=== PATIENT | male | born 1935 | race Caucasian/White ===

== ENCOUNTER → 2017-12-12 | Outpatient (CLI) | payer OTHER, MEDICARE ==
[~2017-12-12] MED LIST: GADOBUTROL 10 ML VIAL IVP ONE
== END ==
LOC: FIMAGING 07:38
PROVIDERS: ATTEND Specialist
DX: R97.20 Elevated prostate specific antigen [PSA] (principal); N40.3 Nodular prostate with lower urinary tract symptoms; R35.0 Frequency of micturition; K62.4 Stenosis of anus and rectum; Z80.42 Family history of malignant neoplasm of prostate
CPT/HCPCS: 72197; 76377; A9585

== ENCOUNTER → 2018-06-25 | Outpatient (CLI) | payer OTHER, MEDICARE | LOC: FIMAGING 07:26 | PROVIDERS: ATTEND Specialist | DX: K76.89 Other specified diseases of liver (principal); K62.4 Stenosis of anus and rectum | CPT/HCPCS: 72197; 76377; A9585; 82565-PO ==

== ENCOUNTER 2018-08-02 08:32 | Inpatient (IN) | payer OTHER, MEDICARE ==
[2018-08-02] MEDS ORDERED: NS 1,000 ML IV ONE ×2 (08:51→10:28)
[2018-08-02] MEDS ORDERED: ONDANSETRON 4 MG/2 ML VIAL IVP ONE (08:58)
[2018-08-02] MEDS ORDERED: HYDROmorphONE/DILAUDID 2 MG/ML INJ IVP ONE (08:58)
--- NOTE | 2018-08-02 09:01 | EDPHY ---
H & P Stated Complaint: l flank pain hematuria Time Seen by Provider: 08/02/18 08:51 HPI/ROS: HPI: This is an 83-year-old male who presents with Chief Complaint: Left flank pain and hematuria Location: Left flank Quality: Pain and hematuria Duration: Around 430 this morning, 5 hr prior to arrival Signs and Symptoms: no fever, + nausea, no vomiting, no hematemesis, no blood in stool, no abdominal bloating, no diarrhea, no back pain, + urinary symptoms, no testicular/groin pain, no indigestion, no chest pain, no shortness of breath Timing: Acute Severity: 03/19 Context: Patient has a history of kidney stones approximately 5 years ago requiring cystoscopy and stent placement by Dr. Arzate at [facility] presents today with waking up this morning around 4:30 a.m. With left flank pain that was in the upper portion radiating down into the left lower groin. Patient reports that he woke up and went to the bathroom and started to feel the pain. The pain was intermittent and cramping in nature. Approximately 1-2 hours later he urinated and had hesitancy, frequency and noted blood in his urine. He felt a sharp burning pain as he urinated which he thought maybe he was passing a stone. Complains of nausea but no vomiting, no fever, no back pain. Modifying Factors: None Comment: ROS: A comprehensive 10 system review of systems is otherwise negative aside from elements mentioned in the history of present illness. MEDICAL/SURGICAL/SOCIAL HISTORY: Medical history: Kidney stones, atrial fibrillation, hyper lipidemia, gastroesophageal reflux disease. Surgical history: Denies Social history: with children. Retired. Never smoked. Family history noncontributory. CONSTITUTIONAL: Well-developed, well-nourished, talkative, elderly white male who appears nontoxic, awake and alert, no obvious distress HEENT: Atraumatic and normocephalic, PERRL, EOMI. Nares patent; no rhinorrhea; no nasal mucosal edema. Tympanic membranes clear. Oropharynx clear, no exudate and moist pink mucosa. Airway patent. No lymphadenopathy. No meningismus. Cardiovascular: Normal S1/S2, regular rate, regular rhythm, without murmur rub or gallop. PULMONARY/CHEST: Symmetrical and nontender. Clear to auscultation bilaterally. Good air movement. No accessory muscle usage. ABDOMEN: Soft, nondistended, nontender, no rebound, no guarding, no peritoneal signs, no masses or organomegaly. Left flank, left lower quadrant moderate reproducible tenderness. EXTREMITIES: 2/2 pulses, strength 5/5, no deformities, no clubbing, no cyanosis or edema. NEUROLOGICAL: no focal neuro deficits. GCS 15. SKIN: Warm and dry, no erythema. no rash. Good capillary refill. Source: Patient, Family, Old records Exam Limitations: No limitations - Personal History Current Tetanus Diphtheria and Acellular Pertussis (TDAP): Unsure - Medical/Surgical History Hx Asthma: No Hx Chronic Respiratory Disease: No Hx Diabetes: No Hx Cardiac Disease: Yes Hx Renal Disease: Yes Hx Cirrhosis: No Hx Alcoholism: No Hx HIV/AIDS: No Hx Splenectomy or Spleen Trauma: No Other PMH: kidney stones afib - Social History Smoking Status: Never smoked Constitutional: Initial Vital Signs Temperature (C) 36.4 C 08/02/18 08:37 Heart Rate 76 08/02/18 08:37 Respiratory Rate 18 08/02/18 08:37 Blood Pressure 152/116 H 08/02/18 08:37 O2 Sat (%) 98 08/02/18 08:37 O2 Delivery Mode Room Air Allergies/Adverse Reactions: propranolol HCl [From Inderal LA] Allergy (Severe, Verified 08/02/18 08:34) FAINTED aspirin Allergy (Intermediate, Verified 08/02/18 08:34) HX RECTAL BLDG WITH FULL STRENGTH ASA Penicillins Allergy (Intermediate, Verified 08/02/18 08:34) Hives Sulfa (Sulfonamide Antibiotics) Allergy (Intermediate, Verified 08/02/18 08:34) Rash fluticasone propionate [From Flonase] Allergy (Verified 08/02/18 08:34) lansoprazole [From Prevacid] Allergy (Verified 08/02/18 08:34) ENVIRONMENTAL Allergy (Mild, Uncoded 02/01/14 14:35) NASAL DRAINAGE, SNEEZE FRAGRANCES Allergy (Mild, Uncoded 02/01/14 14:35) RG, NASAL DRAINAGE Home Medications: Medication Instructions Recorded Acetaminophen [Tylenol ES 500 mg 500 mg PO Q6 PRN 08/02/18 (*)] Apixaban [Eliquis] 5 mg PO BID 08/02/18 Atorvastatin Calcium [Lipitor 20 20 mg PO DAILY 08/02/18 mg (*)] Cholecalciferol Vit D3 [Vitamin D3 1,000 units PO DAILY 08/02/18 (*)] Furosemide [Lasix 20 MG (*)] 20 mg PO DAILY 08/02/18 Methylcellulose [Citrucel] 500 mg PO DAILY 08/02/18 Pantoprazole Sodium 20 mg PO BID 08/02/18 Medical Decision Making - Diagnostics EKG Interpretation: 12 lead EKG: Indication: Abdominal pain Rhythm: Atrial fibrillation [place]: Normal Intervals: Normal QRS: Normal ST segments: Nonspecific changes INTERPRETATION: No acute ischemic changes The 12 lead EKG was interpreted by myself and with attending. Imaging Results: Imaging Impressions Abdomen/Pelvis CT 08/02/18 08:59 Impression: 1. Mild to moderate left-sided hydronephrosis secondary to proximal to mid left ureteral calculus measuring 5.5 x 5 mm transversely by 10 mm longitudinally. 2. Additional 1 mm nonobstructive calculus mid left kidney. Attention: This CT examination is specifically designed to evaluate patients who are clinically suspected of having acute obstructive uropathy. This examination does not use radiographic contrast, and as such, provides only a limited evaluation of the abdomen, pelvis and retroperitoneum. If there is further clinical suspicion for pathological conditions other than obstructive uropathy, a complete CT evaluation of the abdomen and pelvis utilizing intravenous, oral, and rectal contrast should be considered. Findings discussed with Pratibha Solano PAC at 10:25 hour, 08/02/2018. ED Course/Re-evaluation: Vital signs reviewed and show rate controlled atrial fibrillation on the monitor. Afebrile with no tachycardia. IV access, laboratory studies, urinalysis, CT abdomen and pelvis scan without contrast ordered Given 1 L normal saline, IV Dilaudid 0.5 mg, IV Zofran 4 mg Patient is not a good candidate for NSAIDs with Eliquis use. 0910: Notified by RN that patient is now complaining of left-sided chest pressure. EKG and POC troponin ordered Patient has a history of atrial fibrillation, on Eliquis 0925: Notified by daughter at bedside that patient is complaining of pain . IV fentanyl 50 mcg ordered 0930: EKG my read with attending shows atrial fibrillation with a rate of 79 beats per minute with no acute ischemic changes. 0934: Notified by tech that troponin 0.00 0935: Labs Reviewed. No signs of leukocytosis/anemia/platelet dysfunction/ electrolyte imbalance/ACS. Creatinine 1.3, potassium 3.3 1000: Notified by RN that patient is complaining of pain. IV fentanyl 100 mcg and IV Toradol 15 mg given 1013: Urinalysis shows 3+ blood, 50-200 RBC, negative LE, no signs of infection No signs of sepsis. 1025: Called by radiologist, Dr. Leonadr Rosales, who reports CT abdomen and pelvis scan shows [id number] hydronephrosis, either 1 long 1 or 2 stones noted in the proximal to mid left ureter measuring 5.5 mm x 10 mm longitudinally almost like a bullet shape. ED decision to consult Urology and hospitalist. Spoke with Dr. Raudel Stanton, urology, who advised me to contact [facility]. Spoke with hospitalist, Dr. Oviedo, who advises patient will be under the care of Dr. Guillaume. 1045: Paged [facility]. This patient was seen under the supervision of my secondary supervising physician. I evaluated care for this patient with attending. Discussed this patient with Dr. Wagoner. Differential Diagnosis: Flank pain including but not limited to musculoskeletal causes, kidney stone, pyelonephritis, shingles, and intra-abdominal causes such as diverticulitis and appendicitis. - Data Points Laboratory Results: Laboratory Results 08/02/18 09:00 08/02/18 09:00 08/02/18 08/02/18 08/02/18 09:37 09:13 09:00 WBC RBC Hgb Hct MCV MCH MCHC RDW Plt Count MPV Neut % (Auto) Lymph % (Auto) [place] % (Auto) Eos % (Auto) Baso % (Auto) Nucleat RBC Rel Count Absolute Neuts (auto) Absolute Lymphs (auto) Absolute Monos (auto) Absolute Eos (auto) Absolute Basos (auto) Absolute Nucleated RBC Immature Gran % Immature Gran # Sodium 140 mEq/L mEq/L (135-145) Potassium 3.3 mEq/L L mEq/L (3.5-5.2) Chloride 104 mEq/L mEq/L (97-110) Carbon Dioxide 26 mEq/l mEq/l (22-31) Anion Gap 10 mEq/L mEq/L (6-14) BUN 22 mg/dL mg/dL (7-23) Creatinine 1.3 mg/dL mg/dL (0.7-1.3) Estimated GFR 53 Glucose 113 mg/dL H mg/dL (70-100) Calcium 9.2 mg/dL mg/dL (8.5-10.4) POC Troponin I 0.00 ng/mL ng/mL (0.00-0.08) Urine Color YELLOW Urine Appearance HAZY Urine pH 9.0 H (5.0-7.5) Ur Specific [place] 1.010 (1.002-1.030) Urine Protein NEGATIVE (NEGATIVE) Urine Ketones NEGATIVE (NEGATIVE) Urine Blood 3+ H (NEGATIVE) Urine Nitrate NEGATIVE (NEGATIVE) Urine Bilirubin NEGATIVE (NEGATIVE) Urine Urobilinogen NEGATIVE EU EU (0.2-1.0) Ur Leukocyte Esterase NEGATIVE (NEGATIVE) Urine RBC 50-182 /hpf H /hpf (0-3) Urine WBC 0-1 /hpf /hpf (0-3) Ur Epithelial Cells NONE SEEN /lpf /lpf (NONE-1+) Urine Mucus TRACE /lpf /lpf (NONE-1+) Urine Glucose NEGATIVE (NEGATIVE) 08/02/18 09:00 WBC 8.61 10^3/uL 10^3/uL (3.80-9.50) RBC 4.48 10^6/uL 10^6/uL (4.40-6.38) Hgb 14.4 g/dL g/dL (13.7-17.5) Hct 42.7 % % (40.0-51.0) MCV 95.3 fL fL (81.5-99.8) MCH 32.1 pg pg (27.9-34.1) MCHC 33.7 g/dL g/dL (32.4-36.7) RDW 13.2 % % (11.5-15.2) Plt Count 163 10^3/uL 10^3/uL (150-400) MPV 9.8 fL fL (8.7-11.7) Neut % (Auto) 67.6 % % (39.3-74.2) Lymph % (Auto) 20.0 % % (15.0-45.0) [place] % (Auto) 10.3 % % (4.5-13.0) Eos % (Auto) 1.4 % % (0.6-7.6) Baso % (Auto) 0.2 % L % (0.3-1.7) Nucleat RBC Rel Count 0.0 % % (0.0-0.2) Absolute Neuts (auto) 5.82 10^3/uL 10^3/uL (1.70-6.50) Absolute Lymphs (auto) 1.72 10^3/uL 10^3/uL (1.00-3.00) Absolute Monos (auto) 0.89 10^3/uL H 10^3/uL (0.30-0.80) Absolute Eos (auto) 0.12 10^3/uL 10^3/uL (0.03-0.40) Absolute Basos (auto) 0.02 10^3/uL 10^3/uL (0.02-0.10) Absolute Nucleated RBC 0.00 10^3/uL 10^3/uL (0-0.01) Immature Gran % 0.5 % % (0.0-1.1) Immature Gran # 0.04 10^3/uL 10^3/uL (0.00-0.10) Sodium Potassium Chloride Carbon Dioxide Anion Gap BUN Creatinine Estimated GFR Glucose Calcium POC Troponin I Urine Color Urine Appearance Urine pH Ur Specific [place] Urine Protein Urine Ketones Urine Blood Urine Nitrate Urine Bilirubin Urine Urobilinogen Ur Leukocyte Esterase Urine RBC Urine WBC Ur Epithelial Cells Urine Mucus Urine Glucose Medications Given: Discontinued Medications Fentanyl (Sublimaze) 50 mcg IVP EDNOW ONE Stop: 08/02/18 09:26 Last Admin: 08/02/18 09:28 Dose: 50 mcg Fentanyl (Sublimaze) 100 mcg IVP EDNOW ONE Stop: 08/02/18 10:02 Last Admin: 08/02/18 10:04 Dose: 100 mcg Hydromorphone HCl (Dilaudid) 0.5 mg IVP EDNOW ONE Stop: 08/02/18 08:59 Last Admin: 08/02/18 09:05 Dose: 0.5 mg Sodium Chloride (Ns) 1,000 mls @ 0 mls/hr IV ONCE ONE; Wide Open PRN Reason: Protocol Stop: 08/02/18 08:52 Last Admin: 08/02/18 09:05 Dose: 1,000 mls Sodium Chloride (Ns) 1,000 mls @ 0 mls/hr IV EDNOW ONE; Wide Open PRN Reason: Protocol Stop: 08/02/18 10:29 Last Admin: 08/02/18 10:40 Dose: 1,000 mls Ketorolac Tromethamine (Toradol) 15 mg IVP EDNOW ONE Stop: 08/02/18 10:02 Last Admin: 08/02/18 10:03 Dose: 15 mg Ondansetron HCl (Zofran) 4 mg IVP EDNOW ONE Stop: 08/02/18 08:59 Last Admin: 08/02/18 09:05 Dose: 4 mg Point of Care Test Results: Chemistry 08/02/18 09:13 POC Troponin I 0.00 ng/mL ng/mL (0.00-0.08) Departure - Departure Disposition: [facility] Inpatient Acute Clinical Impression: Ureterolithiasis, Renal colic on left side, Hydronephrosis due to obstruction of ureter, Uncontrolled pain Condition: Fair
[2018-08-02 09:21] LABS: PLATELET COUNT 163 10^3/uL (150-400)
[2018-08-02] MEDS ORDERED: fentaNYL 100 MCG/2 ML INJ IVP ONE ×2 (09:25→10:01)
[2018-08-02] MEDS ORDERED: fentaNYL 100 MCG/2 ML INJ ONE (09:59)
[2018-08-02] MEDS ORDERED: KETOROLAC 15 MG/1 ML SDV ONE (10:01)
[2018-08-02] MEDS ORDERED: KETOROLAC 15 MG/1 ML SDV IVP ONE (10:01)
[2018-08-02] MEDS ORDERED: HYDROCODONE/APAP 5/325 TAB PO PRN (11:11)
[2018-08-02] MEDS ORDERED: ACETAMINOPHEN 325 MG TAB PO PRN (11:11)
[2018-08-02] MEDS ORDERED: ONDANSETRON DISINTEGRATING 4 MG TAB PO PRN (11:11)
[2018-08-02] MEDS ORDERED: ONDANSETRON 4 MG/2 ML VIAL IVP PRN (11:11)
--- NOTE | 2018-08-02 11:27 | CPEKG ---
Test Reason : OPEN Blood Pressure : / mmHG Vent. Rate : 079 BPM Atrial Rate : 142 BPM P-R Int : 057 ms QRS Dur : 091 ms QT Int : 403 ms P-R-T Axes : 000 082 069 degrees QTc Int : 463 ms Atrial fibrillation Borderline right axis deviation Confirmed by Ming Wagoner ([id number]) on 08/02/2018 11:27:13 AM Referred By: Shailesh Guillaume Confirmed By:Ming Wagoner
[2018-08-02] MEDS: HYDROmorphONE/DILAUDID 1 MG/ML INJ IVP PRN ×2 (12:59→23:36)
[2018-08-02] MEDS: NS 1,000 ML IV SCH ×2 (13:00→21:58)
--- NOTE | 2018-08-02 17:16 | PDGENHP ---
History and Physical - Chief Complaint L flank pain, hematuria - History of Present Illness Phoenix Adams is a 83 yo M with a PMHx of Nephrolithiasis, A fib on Eliquis, GERD who presents to [facility] for L flank pain and hematuria. Patient reports that for the past 3 weeks of so he has been having intermittent L sided flank pain. Pain is described as sharp, non-radiating. He was seen by his urologist, Dr. Arzate, who performed CT which per patient did not show kidney stone. He was supposed to f/u with urology for cystoscopy in the future. He also reports intermittent hematuria with pink-tinged urine and some bright red blood. He will then have clear urine in between. This morning around 4:30 AM, he awoke with severe L sided flank pain with associated gross hematuria. This prompted him to call his daughter who brought him to the emergency room. History Information - Allergies/Home Medication List Allergies/Adverse Reactions: propranolol HCl [From Inderal LA] Allergy (Severe, Verified 08/02/18 08:34) FAINTED aspirin Allergy (Intermediate, Verified 08/02/18 08:34) HX RECTAL BLDG WITH FULL STRENGTH ASA Penicillins Allergy (Intermediate, Verified 08/02/18 08:34) Hives Sulfa (Sulfonamide Antibiotics) Allergy (Intermediate, Verified 08/02/18 08:34) Rash fluticasone propionate [From Flonase] Allergy (Verified 08/02/18 08:34) lansoprazole [From Prevacid] Allergy (Verified 08/02/18 08:34) ENVIRONMENTAL Allergy (Mild, Uncoded 02/01/14 14:35) NASAL DRAINAGE, SNEEZE FRAGRANCES Allergy (Mild, Uncoded 02/01/14 14:35) RG, NASAL DRAINAGE Home Medications: Acetaminophen [Tylenol ES 500 mg (*)] 500 mg PO Q6 PRN 08/02/18 [Last Taken Unknown] Apixaban [Eliquis] 5 mg PO BID 08/02/18 [Last Taken 08/01/18 21:00] Atorvastatin Calcium [Lipitor 20 mg (*)] 20 mg PO DAILY 08/02/18 [Last Taken ] Cholecalciferol Vit D3 [Vitamin D3 (*)] 1,000 units PO DAILY 08/02/18 [Last Taken 08/01/18] Furosemide [Lasix 20 MG (*)] 20 mg PO DAILY 08/02/18 [Last Taken 08/01/18] Methylcellulose [Citrucel] 500 mg PO DAILY 08/02/18 [Last Taken 08/01/18] Pantoprazole Sodium 20 mg PO BID 08/02/18 [Last Taken 08/02/18] Trolamine Salicylate [Aspercreme] 1 deborah TP TID PRN 08/02/18 [Last Taken Unknown] I have personally reviewed and updated: family history, medical history, social history, surgical history - Past Medical History atrial fibrillation, GERD - Surgical History Reports: no pertinent surgical hx - Family History Positive for: non-pertinent - Social History Smoking Status: Never smoked Review of Systems Review of Systems: ROS: 10pt was reviewed & negative except for what was stated in HPI & below Physical Exam Physical Exam: Temp Pulse Resp BP Pulse Ox 36.8 C 78 16 102/67 94 08/02/18 15:18 08/02/18 15:18 08/02/18 15:18 08/02/18 15:18 08/02/18 15:18 Constitutional: no apparent distress Eyes: PERRL Ears, Nose, Mouth, Throat: moist mucous membranes Cardiovascular: regular rate and rhythym Respiratory: no respiratory distress Gastrointestinal: soft, non-tender abdomen Genitourinary: No angelo in urethra Skin: warm Musculoskeletal: full muscle strength Neurologic: AAOx3 Psychiatric: interacting appropriately Lab Data & Imaging Review 08/02/18 09:00 08/02/18 09:00 WBC 8.61 10^3/uL (3.80-9.50) 08/02/18 09:00 RBC 4.48 10^6/uL (4.40-6.38) 08/02/18 09:00 Hgb 14.4 g/dL (13.7-17.5) 08/02/18 09:00 Hct 42.7 % (40.0-51.0) 08/02/18 09:00 MCV 95.3 fL (81.5-99.8) 08/02/18 09:00 MCH 32.1 pg (27.9-34.1) 08/02/18 09:00 MCHC 33.7 g/dL (32.4-36.7) 08/02/18 09:00 RDW 13.2 % (11.5-15.2) 08/02/18 09:00 Plt Count 163 10^3/uL (150-400) 08/02/18 09:00 MPV 9.8 fL (8.7-11.7) 08/02/18 09:00 Neut % (Auto) 67.6 % (39.3-74.2) 08/02/18 09:00 Lymph % (Auto) 20.0 % (15.0-45.0) 08/02/18 09:00 [place] % (Auto) 10.3 % (4.5-13.0) 08/02/18 09:00 Eos % (Auto) 1.4 % (0.6-7.6) 08/02/18 09:00 Baso % (Auto) 0.2 % (0.3-1.7) L 08/02/18 09:00 Nucleat RBC Rel Count 0.0 % (0.0-0.2) 08/02/18 09:00 Absolute Neuts (auto) 5.82 10^3/uL (1.70-6.50) 08/02/18 09:00 Absolute Lymphs (auto) 1.72 10^3/uL (1.00-3.00) 08/02/18 09:00 Absolute Monos (auto) 0.89 10^3/uL (0.30-0.80) H 08/02/18 09:00 Absolute Eos (auto) 0.12 10^3/uL (0.03-0.40) 08/02/18 09:00 Absolute Basos (auto) 0.02 10^3/uL (0.02-0.10) 08/02/18 09:00 Absolute Nucleated RBC 0.00 10^3/uL (0-0.01) 08/02/18 09:00 Immature Gran % 0.5 % (0.0-1.1) 08/02/18 09:00 Immature Gran # 0.04 10^3/uL (0.00-0.10) 08/02/18 09:00 Sodium 140 mEq/L (135-145) 08/02/18 09:00 Potassium 3.3 mEq/L (3.5-5.2) L 08/02/18 09:00 Chloride 104 mEq/L (97-110) 08/02/18 09:00 Carbon Dioxide 26 mEq/l (22-31) 08/02/18 09:00 Anion Gap 10 mEq/L (6-14) 08/02/18 09:00 BUN 22 mg/dL (7-23) 08/02/18 09:00 Creatinine 1.3 mg/dL (0.7-1.3) 08/02/18 09:00 Estimated GFR 53 08/02/18 09:00 Glucose 113 mg/dL (70-100) H 08/02/18 09:00 Calcium 9.2 mg/dL (8.5-10.4) 08/02/18 09:00 POC Troponin I 0.00 ng/mL (0.00-0.08) 08/02/18 09:13 Urine Color YELLOW 08/02/18 09:37 Urine Appearance HAZY 08/02/18 09:37 Urine pH 9.0 (5.0-7.5) H 08/02/18 09:37 Ur Specific [place] 1.010 (1.002-1.030) 08/02/18 09:37 Urine Protein NEGATIVE (NEGATIVE) 08/02/18 09:37 Urine Ketones NEGATIVE (NEGATIVE) 08/02/18 09:37 Urine Blood 3+ (NEGATIVE) H 08/02/18 09:37 Urine Nitrate NEGATIVE (NEGATIVE) 08/02/18 09:37 Urine Bilirubin NEGATIVE (NEGATIVE) 08/02/18 09:37 Urine Urobilinogen NEGATIVE EU (0.2-1.0) 08/02/18 09:37 Ur Leukocyte Esterase NEGATIVE (NEGATIVE) 08/02/18 09:37 Urine RBC 50-182 /hpf (0-3) H 08/02/18 09:37 Urine WBC 0-1 /hpf (0-3) 08/02/18 09:37 Ur Epithelial Cells NONE SEEN /lpf (NONE-1+) 08/02/18 09:37 Urine Mucus TRACE /lpf (NONE-1+) 08/02/18 09:37 Urine Glucose NEGATIVE (NEGATIVE) 08/02/18 09:37 Assessment & Plan Assessment: Ureterolithiasis (Acute) - Presents with acute L sided flank pain with hematuria -CT on admission showing L sided mild-mod hydronephrosis with prox to mid ureteral calculus measuring 5x5x10 mm -S/p IV Pain medication in ED with improvement in pain 03/19 -> 09/17 -UA on admission showing 3+ blood, 50-125 WBC, no sign of infection -Urology consulted this AM, kept NPO incase of procedures -Continue PRN pain medication CKD - Cr 1.3 on admission, 1.2-1.3 baseline - Continue to monitor BMP, I/O, avoid nephrotoxic agents Hypokalemia - K 3.3 on admission - Patient is a Lasix 20 mg MWF, unclear reason why, denies CHF hx - Will hold Lasix for now, replete K A Fib - Currently on Eliquis, but not any rate/rhythm medications - Will hold Eliquis in setting of possible procedure as above FEN: IVF, NPO DVT PPx: Holding in setting of procedure above Code: FULL Dispo: Admit to Observation
[2018-08-02] MEDS: KETOROLAC 15 MG/1 ML SDV IVP PRN (19:57)
[2018-08-02] MEDS: TAMSULOSIN HCL 0.4 MG CAP PO SCH (20:03)
[2018-08-02] MEDS: oxyCODONE IR 5 MG TAB PO PRN (22:01)
[2018-08-03 05:08] LABS: PLATELET COUNT 137 10^3/uL (150-400)
[2018-08-03] MEDS: KETOROLAC 15 MG/1 ML SDV IVP PRN ×2 (05:12→11:20)
[2018-08-03] MEDS: oxyCODONE IR 5 MG TAB PO PRN ×2 (05:13→09:45)
[2018-08-03] MEDS: NS 1,000 ML IV SCH ×3 (05:18→21:54)
[2018-08-03] MEDS: HYDROmorphONE/DILAUDID 1 MG/ML INJ IVP PRN ×2 (08:49→13:31)
[2018-08-03] MEDS: TAMSULOSIN HCL 0.4 MG CAP PO SCH ×2 (08:52→21:40)
--- NOTE | 2018-08-03 09:43 | ASMTCMCOM ---
CM Note CM Note Notes: Chart reviewed, 83 year old male admitted through the ED with complaints of pain and is diagnosed with kidney stones and renal colic. Normally lives independent with his . CM to follow for needs. Plan: TBD Date Signed: 08/03/2018 09:42 AM Electronically Signed By:Nelda Rodriguez RN
[2018-08-03] MEDS ORDERED: IOPAMIDOL (ISOVUE-M 300) 15 ML VIAL ONE (11:01)
[2018-08-03] MEDS ORDERED: LIDOCAINE 2% JELLY 20 ML (UROJECT) ONE (11:01)
[2018-08-03 13:43] LABS: INR 1.2 (0.83-1.16); PROTIME(PATIENT) 15.4 SEC (12.0-15.0)
--- NOTE | 2018-08-03 14:22 | PDANEPAE ---
ANE History of Present Illness Left ureteroscopy stone ANE Past Medical History - Cardiovascular History Hx Hypertension: Yes Hx Arrhythmias: Yes Hx Chest Pain: No Hx Coronary Artery / Peripheral Vascular Disease: No Hx CHF / Valvular Disease: No Hx Palpitations: No - Pulmonary History Hx COPD: No Hx Asthma/Reactive Airway Disease: No Hx Recent Upper Respiratory Infection: No Hx Oxygen in Use at Home: No Hx Sleep Apnea: Yes Sleep Apnea Screening Result - Last Documented: Positive - Endocrine History Hx Diabetes: No Hypothyroid: No Hyperthyroid: No Obesity: no ANE Review of Systems Review of Systems: - Exercise capacity METS (RN): 4 METS - Systems Cardiac: Reports: other (A fib) ANE Patient History - Allergies Allergies/Adverse Reactions: propranolol HCl [From Inderal [place]] Allergy (Severe, Verified 08/02/18 08:34) FAINTED aspirin Allergy (Intermediate, Verified 08/02/18 08:34) HX RECTAL BLDG WITH FULL STRENGTH ASA Penicillins Allergy (Intermediate, Verified 08/02/18 08:34) Hives Sulfa (Sulfonamide Antibiotics) Allergy (Intermediate, Verified 08/02/18 08:34) Rash fluticasone propionate [From Flonase] Allergy (Verified 08/02/18 08:34) lansoprazole [From Prevacid] Allergy (Verified 08/02/18 08:34) ENVIRONMENTAL Allergy (Mild, Uncoded 02/01/14 14:35) NASAL DRAINAGE, SNEEZE FRAGRANCES Allergy (Mild, Uncoded 02/01/14 14:35) RG, NASAL DRAINAGE - Home Medications Home Medications: Acetaminophen [Tylenol ES 500 mg (*)] 500 mg PO Q6 PRN 08/02/18 [Last Taken Unknown] Apixaban [Eliquis] 5 mg PO BID 08/02/18 [Last Taken 08/01/18 21:00] Atorvastatin Calcium [Lipitor 20 mg (*)] 20 mg PO DAILY 08/02/18 [Last Taken ] Cholecalciferol Vit D3 [Vitamin D3 (*)] 1,000 units PO DAILY 08/02/18 [Last Taken 08/01/18] Furosemide [Lasix 20 MG (*)] 20 mg PO DAILY 08/02/18 [Last Taken 08/01/18] Methylcellulose [Citrucel] 500 mg PO DAILY 08/02/18 [Last Taken 08/01/18] Pantoprazole Sodium 20 mg PO BID 08/02/18 [Last Taken 08/02/18] Trolamine Salicylate [Aspercreme] 1 deborah TP TID PRN 08/02/18 [Last Taken Unknown] - NPO status NPO Since - Liquids (Date): 08/03/18 NPO Since - Liquids (Time): 00:01 NPO Since - Solids (Date): 08/03/18 NPO Since - Solids (Time): 00:01 - Smoking Hx Smoking Status: Never smoked ANE Labs/Vital Signs - Labs Result Diagrams: 08/03/18 04:28 08/03/18 04:28 - Vital Signs Blood Pressure: 128/80 Heart Rate: 73 Respiratory Rate: 16 O2 Sat (%): 95 Height: 180.34 cm Weight: 78.2 kg ANE Physical Exam - Airway Neck exam: decreased ROM Mouth exam: normal dental/mouth exam - Pulmonary Pulmonary: no respiratory distress, no rales or rhonchi - Cardiovascular Cardiovascular: irregularly irregular - ASA Status ASA Status: III ANE Anesthesia Plan Anesthesia Plan: general endotracheal anesthesia Specialized Airway: video laryngoscope
[2018-08-03] MEDS ORDERED: levOFLOXACIN 500 MG/DEXTROSE/100 ML BAG IV ONE (14:41)
[2018-08-03] MEDS ORDERED: levOFLOXACIN 500 MG/DEXTROSE 100 ML IV ONE (14:45)
[2018-08-03] MEDS ORDERED: fentaNYL 100 MCG/2 ML INJ ONE ×2 (14:58→16:35)
[2018-08-03] MEDS ORDERED: PROPOFOL/EMULSION 500 MG/50 ML BOTTLE IV ONE (14:59)
[2018-08-03] MEDS ORDERED: DEXAMETHASONE 4 MG/ML VIAL ONE (15:20)
[2018-08-03] MEDS ORDERED: SUGAMMADEX SODIUM 200 MG/2 ML VIAL IVP ONE (15:41)
[2018-08-03] MEDS ORDERED: ONDANSETRON 4 MG/2 ML VIAL ONE (15:45)
[2018-08-03] MEDS ORDERED: LIDOCAINE 2% 2 ML INJ ONE (15:52)
[2018-08-03] MEDS ORDERED: HYDROmorphONE/DILAUDID 2 MG/ML INJ IVP PRN (15:56)
[2018-08-03] MEDS ORDERED: ONDANSETRON 4 MG/2 ML VIAL IVP PRN (15:56)
[2018-08-03] MEDS ORDERED: NALOXONE HCL 0.4 MG/ML INJ IVP PRN (15:56)
[2018-08-03] MEDS ORDERED: ALBUTEROL 3 ML DEYVIAL IH PRN (15:56)
[2018-08-03] MEDS ORDERED: fentaNYL 100 MCG/2 ML INJ IVP PRN (15:56)
--- NOTE | 2018-08-03 16:00 | POSTANESTH ---
Post Anesthetic Evaluation Cardiovascular Status: Similar to Pre-Op Cond Respiratory Status: Normal, Stable Level of Consciousness/Mental Status: Can Participate in Eval Pain Control: Adequate, Prn Tx Ordered Nausea/Vomiting Control: Adequate, Prn Tx Ordered Complications Possibly Related to Anesthesia: None Noted
--- NOTE | 2018-08-03 16:29 | HOSPPROG ---
Hospitalist Progress Note Objective: Vital Signs Temp Pulse Resp BP Pulse Ox 36.3 C 88 16 116/67 96 08/03/18 16:17 08/03/18 16:17 08/03/18 16:17 08/03/18 16:17 08/03/18 16:17 Laboratory Results 08/03/18 04:28 08/03/18 04:28 08/02/18 08/03/18 08/04/18 05:59 05:59 05:59 Intake Total 4408 Output Total 380 120 Balance 4028 -120 PT 15.4 SEC (12.0-15.0) H 08/03/18 13:25 INR 1.20 (0.83-1.16) H 08/03/18 13:25 ICD10 Worksheet Patient Problems: Problems Problem Status Onset Hydronephrosis due to obstruction of ureter Acute Renal colic on left side Acute Uncontrolled pain Acute Ureterolithiasis Acute
--- NOTE | 2018-08-03 16:31 | HOSPPROG ---
Hospitalist Progress Note Assessment/Plan: Ureterolithiasis (Acute) - Presented with acute L sided flank pain with hematuria -CT on admission showing L sided mild-mod hydronephrosis with prox to mid ureteral calculus measuring 5x5x10 mm -S/p IV Pain medication in ED with improvement in pain 03/19 -> 09/17 -UA on admission showing 3+ blood, 50-125 WBC, no sign of infection -Urology consulted, going to OR this afternoon -Continue PRN pain medication CKD - Cr 1.3 on admission, 1.2-1.3 baseline, 1.4 this AM - Continue to monitor BMP, I/O, avoid nephrotoxic agents Hypokalemia - K 3.3 on admission - Patient is a Lasix 20 mg MWF, unclear reason why, denies CHF hx - Will hold Lasix for now, replete K A Fib - Currently on Eliquis, but not any rate/rhythm medications - Will hold Eliquis in setting of procedure above FEN: IVF, NPO DVT PPx: Holding in setting of procedure above Code: FULL Dispo: Pending procedure today Subjective: Patient reports some L flank pain overnight Objective: Vital Signs Temp Pulse Resp BP Pulse Ox 36.3 C 88 16 116/67 96 08/03/18 16:17 08/03/18 16:17 08/03/18 16:17 08/03/18 16:17 08/03/18 16:17 Laboratory Results 08/03/18 04:28 08/03/18 04:28 08/02/18 08/03/18 08/04/18 05:59 05:59 05:59 Intake Total 4408 Output Total 380 120 Balance 4028 -120 PT 15.4 SEC (12.0-15.0) H 08/03/18 13:25 INR 1.20 (0.83-1.16) H 08/03/18 13:25 - Physical Exam Constitutional: no apparent distress Eyes: PERRL Ears, Nose, Mouth, Throat: moist mucous membranes Cardiovascular: regular rate and rhythym Respiratory: no respiratory distress Gastrointestinal: normoactive bowel sounds Genitourinary: no bladder fullness Skin: warm Musculoskeletal: full muscle strength Neurologic: AAOx3 Psychiatric: interacting appropriately ICD10 Worksheet Patient Problems: Problems Problem Status Onset Hydronephrosis due to obstruction of ureter Acute Renal colic on left side Acute Uncontrolled pain Acute Ureterolithiasis Acute
--- NOTE | 2018-08-03 17:01 | PDMN ---
Medical Necessity Medical necessity: [facility] [place] M320 Renal Colic and Kidney Stones, A-1 day: 83 yo presents w/ L flank pain and hematuria. Eval reveals acute ureterolithiasis, initially OBS for workup and uro consult. Pt requires additional MN as going to OR after OBS watch for L ureteroscopy. Remains NPO on IVF, IV dilaudid, IV Fentanyl and IV Toradol for pain. Meets [facility] [place] IP criteria for severe pain needs and ongoing IV hydration. Hx afib, GERD. Change to IP status 08/03/18@1631 per MD order.
[2018-08-03] MEDS ORDERED: LIDOCAINE 2% JELLY 20 ML (UROJECT) UR ONE (21:59)
[2018-08-03] MEDS ORDERED: METOPROLOL TARTRATE 25 MG TAB PO ONE (23:16)
--- NOTE | 2018-08-04 01:10 | GCON ---
[f rep st] CONSULTATION DATE OF CONSULTATION: 08/02/2018 CHIEF COMPLAINT: Left flank pain, hematuria, and nephrolithiasis. HISTORY OF PRESENT ILLNESS: The patient is a very pleasant 83-year-old male with a history of nephro lithiasis known. He is on Eliquis for AFib, and he has a history of stones in the past. For the las t 3 weeks, he has been having intermittent left flank pain. He was seen by Dr. Arzate, and a CT sc an, per the patient, did not show the stone. He is here with hematuria, with also left severe flank pain, and a CT scan noted left hydronephrosis with a proximal to mid ureteral stone measuring approxi mately 5 x 5 x 10 mm. He was admitted for a trial of stone passage. He was placed on tamsulosin and IV fluids, and this morning, he was having difficulty with pain. He was brought to the operating ro om for management of this. ALLERGIES: Propranolol, aspirin, penicillin, sulfa, fluticasone, lansoprazole. HOME MEDICATIONS: Tylenol, Eliquis, atorvastatin, furosemide, pantoprazole, and topical medications. PAST MEDICAL HISTORY: AFib and GERD and nephrolithiasis. SURGICAL HISTORY: No prior surgical history. FAMILY HISTORY: Non-pertinent. SOCIAL HISTORY: Never smoked. REVIEW OF SYSTEMS: A 10-point review of systems was negative, except for as stated in the H and P. PHYSICAL EXAMINATION: VITAL SIGNS: He is afebrile. Pulse is 78, respiratory rate 16, blood pressur e is 100/60, pulse is 94%. HEENT: Normocephalic, atraumatic. CONSTITUTIONAL: No apparent distress . CARDIOVASCULAR: Regular rate and rhythm. RESPIRATORY: No retractions. No pursed-lip breathing. ABDOMINAL: Soft, nontender, nondistended. There is some left CVA tenderness. GENITOURINARY: Nor mal. SKIN: Warm. MUSCULOSKELETAL: Moving all 4 extremities. NEUROLOGIC: Alert, oriented x3. PS YCHIATRIC: Interacting appropriately. LAB DATA: His H and H are 14 and 42, white count is 8. Creatinine is 1.3. ASSESSMENT AND PLAN: Ureterolithiasis, acute with flank pain and renal colic and hydronephrosis. We will watch him tonight. If he does not pass the stone, we will plan on operating room tomorrow. He is in agreement with that plan. I had a long discussion with the patient and his family about the p mayra, about ureteroscopy, about stent placement, and he is in agreement with this, and thus we will as sess him tomorrow, and we will follow along. Thank you for the opportunity to participate in the care of this patient. /[id number]/MODL
--- NOTE | 2018-08-04 08:40 | POSTOPPROG ---
Post Op Note Date of Operation: 08/03/18 Surgeon: Davey Curry Anesthesia: GET(General Endotracheal) Pre-op Diagnosis: left obstructing stone Post-op Diagnosis: same Indication: same Procedure: left stone manipulation, no laser utilized, removed intact w basket Inf/Abcess present in the surg proc area at time of surgery?: No Depth: Organ Space Complications: none Drains: Other (JJ)
--- NOTE | 2018-08-04 08:42 | SOAPPROG ---
ANGEL Progress Note Assessment/Plan: Assessment: Still w pain -plan for OR today - 08/03/18 Plan:to OR for ureteroscopic mgmt of 1 cm stone 08/03/18 08:40 Objective: Vital Signs Temp Pulse Resp BP Pulse Ox 36.5 C 91 18 125/77 H 93 08/04/18 07:27 08/04/18 07:27 08/04/18 07:27 08/04/18 07:27 08/04/18 07:27 Laboratory Results 08/04/18 04:17 08/04/18 04:17 08/03/18 08/04/18 08/05/18 05:59 05:59 05:59 Intake Total 1500 Output Total 750 Balance 750 PT 15.4 SEC (12.0-15.0) H 08/03/18 13:25 INR 1.20 (0.83-1.16) H 08/03/18 13:25 Physical Exam - Physical Exam EENT: PERRL/EOMI Neck: non-tender Respiratory: chest non-tender Cardiac/Chest: normal peripheral pulses Abdomen: normal bowel sounds, other (Left CVA tenderness) Male Genitalia: normal genitalia Rectal: deferred Back: Normal inspection Skin: normal color Lymphatic: no adenopathy ICD10 Worksheet Patient Problems: Problems Problem Status Onset Hydronephrosis due to obstruction of ureter Acute Renal colic on left side Acute Uncontrolled pain Acute Ureterolithiasis Acute
--- NOTE | 2018-08-04 08:43 | PDCONSULT ---
Stoker Installation Mechanic Note: OK for DC home w tamsulosin [address] Arzate on Saturday for stent removal in 2 weeks -discussed this w patient and family -they agree and demonstrate understanding that the stent must be removed in 2 weeks -
[2018-08-04] MEDS: TAMSULOSIN HCL 0.4 MG CAP PO SCH (08:51)
[2018-08-04 11:20] VITALS: BP 124/76
[2018-08-04] MEDS: NS 1,000 ML IV SCH (11:42)
--- NOTE | 2018-08-04 14:58 | ASMTLACE ---
LACE Length of stay for Answers: Less than 1 day current admission Acuity / Level of Answers: Yes Care: Did the patient have an inpatient admission? Comorbidities - select Answers: Other Notes: Atrial fib, GERD, kidne y all that apply stones # of Emergency department Answers: 1-2 visits in the last 6 months Score: 5 Date Signed: 08/03/2018 09:38 AM Electronically Signed By:Nelda Rodriguez RN
--- NOTE | 2018-08-04 15:03 | ASMTDCNOTE ---
Case Management Discharge Discharge Order Complete? Answers: Yes Patient to Obtain Answers: via Family Medications Transportation Arranged Answers: Family/Friends Family Notified Answers: Yes Discharge Comments Notes: Patient medically cleared for discharge to home . No current needs. Date Signed: 08/04/2018 03:01 PM Electronically Signed By:Nelda Rodriguez RN
--- NOTE | 2018-08-04 15:27 | PDDCSUM ---
Discharge Summary Discharge Summary: Date of Admission: 08/02/2018 Date of Discharge: 08/04/2018 Consults: Urology Procedures: Cystoscopy, stent placement Follow: Urology, Dr. Arzate in 2 weeks for stent removal Hospital Course Problem List: Ureterolithiasis (Acute) - Presented with acute L sided flank pain with hematuria - CT on admission showing L sided mild-mod hydronephrosis with prox to mid ureteral calculus measuring 5x5x10 mm - S/p IV Pain medication - UA on admission showing 3+ blood, 50-125 WBC, no sign of infection - Urology consulted, s/p OR on 08/03 with stent placement - Carreno removed prior to discharge - Patient to f/u with OP Urologist, Dr. Arzate with [facility] in 2 weeks for stent removal CKD - Cr 1.3 on admission, 1.2-1.3 baseline, 1.2 his AM Hypokalemia - K 3.3 on admission - Patient is a Lasix 20 mg MWF, unclear reason why, denies CHF hx - K 3.9 this AM - Held Lasix, restart upon discharge A Fib - Currently on Eliquis, but not any rate/rhythm medications - Held Eliquis in setting of procedure above, restart day after discharge Time spent on discharge was >35 minutes with >50% of time spent on patient education and counseling.
--- NOTE | 2018-08-21 13:31 | GOP ---
[f rep st] OPERATIVE REPORT DATE OF OPERATION: 08/03/2018 SURGEON: Davey Curry MD ANESTHESIA: General endotracheal anesthesia. PREOPERATIVE DIAGNOSIS: Left obstructing stone. POSTOPERATIVE DIAGNOSIS: Left obstructing stone. PROCEDURE PERFORMED: Left stone manipulation, no laser utilized, removal intact with a basket, and s tent placement on 08/03/2018. FINDINGS: ESTIMATED BLOOD LOSS: Zero. INDICATIONS: Left obstructing stone. DESCRIPTION OF PROCEDURE: Patient was identified by name, medical record number, and wrist band; bro ught to the operating room, laid supine on table, and prepped and draped in standard surgical fashion . A 22-Icelandic cystoscope was inserted in the bladder. The entire bladder was visualized. The left and right ureteral orifices were noted to be in normal location, 0.038 Glidewire was inserted in the lef t ureter x2. Ureteroscope was passed into the bladder, and the stone was easily visualized, and so i t was grasped with a basket and removed, and sent to Pathology for analysis. The stone was removed i ntact. Stent was passed, and the patient was awakened from anesthesia, brought to the recovery room in stable condition. COMPLICATIONS: None. URINE OUTPUT: Unrecorded. INDICATIONS: The patient has a large stone he is having difficulty passing. We have tried medical m anagement and has failed. He was brought to the operating room for management of this. /[id number]/MODL
== END 2018-08-04 15:49 | disposition home or self-care (01) | DRG 661 ==
LOC: INTOOBSV 10:34 → F1N 11:44 → OBSVTOIN 08-03 16:31
PROVIDERS: ADMIT Internal Medicine; ATTEND Internal Medicine
DX: N13.2 Hydronephrosis with renal and ureteral calculous obstruction (principal); E86.9 Volume depletion, unspecified; N18.9 Chronic kidney disease, unspecified; E87.6 Hypokalemia; I48.91 Unspecified atrial fibrillation; E78.5 Hyperlipidemia, unspecified; K21.9 Gastro-esophageal reflux disease without esophagitis; Z79.01 Long term (current) use of anticoagulants
CPT/HCPCS: 84484-ER; 96374; 97161-GP; 97530-GP; C1758; C1769; C2625; G0378; J1100; J1170; J1885; J1956; J2405; J2704; J3010; Q9967

== ENCOUNTER → 2018-08-29 | Outpatient (CLI) | payer OTHER, MEDICARE | LOC: FIMAGING 09:51 | PROVIDERS: ATTEND Specialist | DX: Z09 Encounter for follow-up examination after completed treatment for conditions other than malignant neoplasm (principal); N28.1 Cyst of kidney, acquired; R33.9 Retention of urine, unspecified; Z87.448 Personal history of other diseases of urinary system ==

== ENCOUNTER 2018-09-02 10:36 | Inpatient (IN) | payer OTHER, MEDICARE ==
--- NOTE | 2018-09-02 10:59 | EDPHY ---
H & P Time Seen by Provider: 09/02/18 10:57 HPI/ROS: CHIEF COMPLAINT: Vomiting and diarrhea HISTORY OF PRESENT ILLNESS: Patient had diarrhea last night and vomited twice at 1:00 a.m. And 4:00 a.m. In both times it was bright red blood. He has last vomited diarrhea at 4:00 a.m.. No melena. Denies abdominal pain or dizziness or lightheadedness. Denies active nose bleeding or ecchymosis, or hematuria. Symptoms were moderate to severe, seem to have resolved at this point. REVIEW OF SYSTEMS: Eye: no change in vision ENT: no sore throat Cardiac: no chest pain or syncope Pulmonary: no cough or SOB Abdomen: HPI Musculoskeletal: no back pain Skin: no rash Neuro: no headache Constitutional: no fever : no urinary symptoms A comprehensive 10 point review of systems is otherwise negative aside from elements mentioned in the history of present illness. PAST MEDICAL HISTORY: Includes kidney stones, AFib on Eliquis, hypercholesterolemia Social history: Here with and daughter General Appearance: Alert and conversant, cooperative. Eyes: No scleral icterus. ENT, Mouth: Normal mucous membranes. No intraoral or nasal blood. Respiratory: Normal respiratory effort, breath sounds equal, lungs are clear to auscultation. Cardiovascular: Regular rate and rhythm. Gastrointestinal: Abdomen is soft and non tender. Rectal exam shows fairly tight rectal sphincter and stool sent for Hemoccult. Neurological: Alert, face symmetric, normal motor and sensory in extremities. Skin: No petechiae or bruising. Musculoskeletal: No peripheral edema. Psychiatric: Not agitated. Emergency Department course/MDM: Occult blood negative and hematocrit normal, history is concerning for GI bleed as well as his heart rate in the 90s and his blood pressure just above 100. [place], 1245. No ppi secondary to listed allergy. Smoking Status: Never smoked Constitutional: Initial Vital Signs Temperature (C) 36.3 C 09/02/18 10:38 Heart Rate 92 09/02/18 10:38 Respiratory Rate 16 09/02/18 10:38 Blood Pressure 107/63 09/02/18 10:38 O2 Sat (%) 96 09/02/18 10:38 O2 Delivery Mode Room Air Allergies/Adverse Reactions: propranolol HCl [From Inderal LA] Allergy (Severe, Verified 08/02/18 08:34) FAINTED aspirin Allergy (Intermediate, Verified 08/02/18 08:34) HX RECTAL BLDG WITH FULL STRENGTH ASA Penicillins Allergy (Intermediate, Verified 08/02/18 08:34) Hives Sulfa (Sulfonamide Antibiotics) Allergy (Intermediate, Verified 08/02/18 08:34) Rash fluticasone propionate [From Flonase] Allergy (Verified 08/02/18 08:34) lansoprazole [From Prevacid] Allergy (Verified 08/02/18 08:34) ENVIRONMENTAL Allergy (Mild, Uncoded 02/01/14 14:35) NASAL DRAINAGE, SNEEZE FRAGRANCES Allergy (Mild, Uncoded 02/01/14 14:35) RG, NASAL DRAINAGE Home Medications: Medication Instructions Recorded Acetaminophen [Tylenol ES 500 mg 500 mg PO Q6 PRN 08/02/18 (*)] Apixaban [Eliquis] 5 mg PO BID 08/02/18 Atorvastatin Calcium [Lipitor 20 20 mg PO DAILY 08/02/18 mg (*)] Cholecalciferol Vit D3 [Vitamin D3 1,000 units PO DAILY 08/02/18 (*)] Furosemide [Lasix 20 MG (*)] 20 mg PO DAILY 08/02/18 Methylcellulose [Citrucel] 500 mg PO DAILY 08/02/18 Pantoprazole Sodium 20 mg PO BID 08/02/18 Trolamine Salicylate [Aspercreme] 1 deborah TP TID PRN 08/02/18 Tamsulosin HCl [Flomax 0.4 MG (*)] 0.4 mg PO DAILY #30 cap 08/04/18 Medical Decision Making Differential Diagnosis: Differential considered including but not limited to epistaxis, upper GI bleed, Rosi-Gray tear, coagulopathy Consult/Admit Bed Type: [place] [id number] to see today - Data Points Laboratory Results: Laboratory Results 09/02/18 11:18 09/02/18 11:18 09/02/18 09/02/18 09/02/18 11:18 11:18 11:18 WBC RBC Hgb Hct MCV MCH MCHC RDW Plt Count MPV Neut % (Auto) Lymph % (Auto) [place] % (Auto) Eos % (Auto) Baso % (Auto) Nucleat RBC Rel Count Absolute Neuts (auto) Absolute Lymphs (auto) Absolute Monos (auto) Absolute Eos (auto) Absolute Basos (auto) Absolute Nucleated RBC Immature Gran % Immature Gran # RBC/WBC/PLT Morphology Platelet Estimate PT 15.7 SEC H SEC (12.0-15.0) INR 1.31 H (0.83-1.16) APTT 33.1 SEC SEC (23.0-38.0) Sodium 141 mEq/L mEq/L (135-145) Potassium 3.5 mEq/L mEq/L (3.5-5.2) Chloride 103 mEq/L mEq/L (97-110) Carbon Dioxide 25 mEq/l mEq/l (22-31) Anion Gap 13 mEq/L mEq/L (6-14) BUN 29 mg/dL H mg/dL (7-23) Creatinine 1.3 mg/dL mg/dL (0.7-1.3) Estimated GFR 53 Glucose 119 mg/dL H mg/dL (70-100) Calcium 9.2 mg/dL mg/dL (8.5-10.4) Stool Occult Bld Scrn NEGATIVE (NEGATIVE) 09/02/18 11:18 WBC 8.14 10^3/uL 10^3/uL (3.80-9.50) RBC 4.87 10^6/uL 10^6/uL (4.40-6.38) Hgb 15.4 g/dL g/dL (13.7-17.5) Hct 46.9 % % (40.0-51.0) MCV 96.3 fL fL (81.5-99.8) MCH 31.6 pg pg (27.9-34.1) MCHC 32.8 g/dL g/dL (32.4-36.7) RDW 13.7 % % (11.5-15.2) Plt Count 155 10^3/uL 10^3/uL (150-400) MPV 9.4 fL fL (8.7-11.7) Neut % (Auto) 84.5 % H % (39.3-74.2) Lymph % (Auto) 5.9 % L % (15.0-45.0) [place] % (Auto) 9.1 % % (4.5-13.0) Eos % (Auto) 0.0 % L % (0.6-7.6) Baso % (Auto) 0.1 % L % (0.3-1.7) Nucleat RBC Rel Count 0.0 % % (0.0-0.2) Absolute Neuts (auto) 6.88 10^3/uL H 10^3/uL (1.70-6.50) Absolute Lymphs (auto) 0.48 10^3/uL L 10^3/uL (1.00-3.00) Absolute Monos (auto) 0.74 10^3/uL 10^3/uL (0.30-0.80) Absolute Eos (auto) 0.00 10^3/uL L 10^3/uL (0.03-0.40) Absolute Basos (auto) 0.01 10^3/uL L 10^3/uL (0.02-0.10) Absolute Nucleated RBC 0.00 10^3/uL 10^3/uL (0-0.01) Immature Gran % 0.4 % % (0.0-1.1) Immature Gran # 0.03 10^3/uL 10^3/uL (0.00-0.10) RBC/WBC/PLT Morphology TNP Platelet Estimate TNP PT INR APTT Sodium Potassium Chloride Carbon Dioxide Anion Gap BUN Creatinine Estimated GFR Glucose Calcium Stool Occult Bld Scrn Medications Given: Discontinued Medications Sodium Chloride (Ns) 1,000 mls @ 0 mls/hr IV EDNOW ONE; Wide Open PRN Reason: Protocol Stop: 09/02/18 11:10 Last Admin: 09/02/18 11:25 Dose: 1,000 mls Departure - Departure Disposition: [facility] Inpatient Acute Clinical Impression: Upper gastrointestinal bleed Condition: Good
[2018-09-02] MEDS ORDERED: NS 1,000 ML IV ONE (11:09)
[2018-09-02 11:30] LABS: PLATELET COUNT 155 10^3/uL (150-400)
[2018-09-02 11:44] LABS: INR 1.31 (0.83-1.16); PROTIME(PATIENT) 15.7 SEC (12.0-15.0)
[2018-09-02] MEDS ORDERED: ONDANSETRON 4 MG/2 ML VIAL IVP PRN ×2 (13:48→17:24)
[2018-09-02] MEDS ORDERED: ACETAMINOPHEN 325 MG TAB PO PRN (13:48)
[2018-09-02] MEDS ORDERED: ONDANSETRON DISINTEGRATING 4 MG TAB PO PRN (13:48)
[2018-09-02] MEDS ORDERED: TROLAMINE SALICYLATE 85 GM CRTUBE TP PRN (13:55)
[2018-09-02] MEDS ORDERED: PANTOPRAZOLE SODIUM 40 MG VIAL IVP SCH (14:00)
[2018-09-02] MEDS: NS 1,000 ML IV SCH (14:21)
--- NOTE | 2018-09-02 14:23 | GHP ---
[f rep st] HISTORY AND PHYSICAL DATE OF ADMISSION: 09/02/2018 CHIEF COMPLAINT: Hematemesis. HISTORY OF PRESENT ILLNESS: This is an 83-year-old man with a history of atrial fibrillation on Eliquis, who presents with hematemesis. He had a kidney stone about a month ago. Since then, he has "not felt right." Last night, he had significant nausea. He had an episode of violent retching and vomiting, he does not believe that there was any blood at that point. He had 2 more episodes of emesis both of which were quite bloody. He does not believe that he has had any melena. He is not taking any NSAIDs. He drinks a very small amount. He has no known liver disease. He has a history of Schatzki rings, which have been dilated multiple times, he believes by Dr. Guillaume. He has never been told of any ulcerative disease in his stomach. CT scan reviewed from a month ago does not comment on any gastric abnormalities. He has an allergy listed to lansoprazole. He describes this as being more of an intolerance, as he had diarrhea with it when it was associated with Eliquis. He tells me that he is currently taking Protonix low-dose around 5 mg a day. PAST MEDICAL/SURGICAL HISTORY: 1. Atrial fibrillation on Eliquis. 2. Hyperlipidemia. 3. Kidney stones. 4. Schatzki rings in his esophagus. 5. Chronic kidney disease, mild. MEDICATIONS: Please see medication reconciliation. ALLERGIES: Propranolol, aspirin, penicillin, sulfa, lansoprazole. FAMILY HISTORY: Reviewed and noncontributory. SOCIAL HISTORY: Never smoked. He drinks a very small amount. REVIEW OF SYSTEMS: 10-point review of systems is conducted and is negative except per HPI. PHYSICAL EXAM: VITAL SIGNS: Blood pressure 115/78, heart rate 75, respiration rate 16, sating at 97% on room air. Temperature is 36.5. GENERAL: The patient is a pleasant man who is resting comfortably in no acute distress. HEENT shows him to be normocephalic, atraumatic. CARDIOVASCULAR: Shows a regular rate and rhythm. No murmurs, rubs or gallops. PULMONARY: Lungs clear to auscultation bilaterally. ABDOMEN: Soft, nontender, nondistended. SKIN: Shows no rash. : No Carreno. NEUROLOGIC: Shows him to be alert and oriented x3, Moving all extremities. PSYCHIATRIC: Shows normal mood and affect. LABS: White count is 8, hemoglobin is 15., platelets are 155. INR is 1.3. BUN is 29, creatinine is 1.3. Stool occult blood screen is negative. DATA: 1. CT scan reviewed as above. 2. Discussed with Dr. Corral, will admit to Med/Surg. IMPRESSION AND PLAN: 83-year-old man with hematemesis on anticoagulation. 1. Hematemesis: Hemodynamically stable, hemoglobin is normal. He does have a slightly elevated BUN. No known liver disease, very well may be a Rosi- Gray tear given his history, as well as known esophageal pathology. Discussed his allergy to lansoprazole, I think it is safe to give him Protonix, I have ordered this. Dr. Murphy has been consulted and will see the patient and likely perform an esophagogastroduodenoscopy. Will hold his Eliquis. He does not need anticoagulation reversal at this point, but if he does would use KCentra. Will check a GI panel given his unexplained emesis. 2. Atrial fibrillation on Eliquis: Hold as above. His rate is currently controlled in the 70s. 3. Hyperlipidemia: Continue his Lipitor. 4. Recent kidney stone: Asymptomatic now. /[id number]/MODL MTDD
[2018-09-02] MEDS ORDERED: EPINEPHrine 1 MG/10 ML SYR IVP ONE (16:08)
[2018-09-02] MEDS ORDERED: PROPOFOL/EMULSION 500 MG/50 ML BOTTLE IV ONE (16:27)
[2018-09-02] MEDS ORDERED: LR 1,000 ML IV ONE (16:29)
--- NOTE | 2018-09-02 16:29 | PDANEPAE ---
ANE History of Present Illness gi bleed ANE Past Medical History - Cardiovascular History Hx Hypertension: Yes Hx Arrhythmias: Yes Hx Chest Pain: No Hx Coronary Artery / Peripheral Vascular Disease: No Hx CHF / Valvular Disease: No Hx Palpitations: No Cardiovascular History Comment: a-fib on eliquis - Pulmonary History Hx COPD: No Hx Asthma/Reactive Airway Disease: No Hx Recent Upper Respiratory Infection: No Hx Oxygen in Use at Home: No Hx Sleep Apnea: Yes Sleep Apnea Screening Result - Last Documented: Positive - Neurologic History Hx Cerebrovascular Accident: No Hx Seizures: No Hx Dementia: No - Endocrine History Hx Diabetes: No Hypothyroid: No Hyperthyroid: No Obesity: no - Renal History Hx Renal Disorders: Yes Renal History Comment: ckd- mild - Liver History Hx Hepatic Disorders: No - Neurological & Psychiatric Hx Hx Neurological and Psychiatric Disorders: No - GI History GERD: moderate Hx Gastrointestinal Disorders: Yes Gastrointestinal History Comment: + Gi bleed ANE Review of Systems Review of systems is: negative Review of Systems: - Exercise capacity Exercise capacity: >=4 METS ANE Patient History - Allergies Allergies/Adverse Reactions: propranolol HCl [From Inderal LA] Allergy (Severe, Verified 08/02/18 08:34) FAINTED aspirin Allergy (Intermediate, Verified 08/02/18 08:34) HX RECTAL BLDG WITH FULL STRENGTH ASA Penicillins Allergy (Intermediate, Verified 08/02/18 08:34) Hives Sulfa (Sulfonamide Antibiotics) Allergy (Intermediate, Verified 08/02/18 08:34) Rash fluticasone propionate [From Flonase] Allergy (Verified 08/02/18 08:34) lansoprazole [From Prevacid] Allergy (Verified 08/02/18 08:34) ENVIRONMENTAL Allergy (Mild, Uncoded 02/01/14 14:35) NASAL DRAINAGE, SNEEZE FRAGRANCES Allergy (Mild, Uncoded 02/01/14 14:35) RG, NASAL DRAINAGE - Home Medications Home medications: home medication list seen and reviewed Home Medications: Acetaminophen [Tylenol ES 500 mg (*)] 500 mg PO Q6 PRN 08/02/18 [Last Taken ] Apixaban [Eliquis] 5 mg PO BID 08/02/18 [Last Taken 09/02/18] Atorvastatin Calcium [Lipitor 20 mg (*)] 20 mg PO DAILY 08/02/18 [Last Taken ] Cholecalciferol Vit D3 [Vitamin D3 (*)] 1,000 units PO DAILY 08/02/18 [Last Taken 09/02/18] Furosemide [Lasix 20 MG (*)] 20 mg PO DAILY 08/02/18 [Last Taken 09/01/18] Methylcellulose [Citrucel] 1,000 mg PO DAILY 08/02/18 [Last Taken 09/02/18] Pantoprazole Sodium 20 mg PO BID 08/02/18 [Last Taken 09/02/18] Trolamine Salicylate [Aspercreme] 1 deborah TP TID PRN 08/02/18 [Last Taken Unknown] - NPO status NPO Status: no food or drink >8 hours NPO Since - Liquids (Date): 09/02/18 NPO Since - Liquids (Time): 14:00 NPO Since - Solids (Date): 09/02/18 NPO Since - Solids (Time): 07:30 - Anes Hx Anes Hx: no prior problems - Smoking Hx Smoking Status: Never smoked ANE Labs/Vital Signs - Labs Result Diagrams: 09/02/18 15:25 09/02/18 11:18 - Vital Signs Vital Signs: reviewed preoperatively; see RN documention for details Blood Pressure: 119/75 Heart Rate: 97 Respiratory Rate: 18 O2 Sat (%): 100 Height: 181.6 cm Weight: 76 kg ANE Physical Exam - Airway Neck exam: FROM Mallampati Score: Class 2 Mouth exam: normal dental/mouth exam - Pulmonary Pulmonary: no respiratory distress - Cardiovascular Cardiovascular: regular rate and rhythym - ASA Status ASA Status: III ANE Anesthesia Plan Anesthesia Plan: general endotracheal anesthesia
[2018-09-02] MEDS ORDERED: SUGAMMADEX SODIUM 200 MG/2 ML VIAL IVP ONE (17:03)
[2018-09-02] MEDS ORDERED: ROCURONIUM 50 MG/5 ML VIAL ONE (17:03)
--- NOTE | 2018-09-02 17:03 | GIREPORT ---
[facility] Surgical Services - Endoscopy Department Patient Name: Phoenix Adams Procedure Date: 09/02/2018 4:07 PM Patient Type: Inpatient Attending MD/ ER Physician: Jefry Murphy MD Procedure: Upper GI endoscopy Indications: Hematemesis Providers: Jefry Murphy MD Medicines: General Anesthesia Complications: No immediate complications. Description of Procedure: After obtaining informed consent, the endoscope was passed under direct vision. Throughout the procedure, the patient's blood pressure, pulse, and oxygen saturations were monitored continuously. The Endoscope was intro duced through the mouth, and advanced to the second part of duodenum. The [facility] er GI endoscopy was accomplished without difficulty. The patient tolerated th e procedure well. Findings: A 8 mm non-bleeding Rosi-Gray tear with no stigmata of recent bleed ing was found. The entire examined stomach was normal. The examined duodenum was normal. Estimated Blood Loss: Estimated blood loss: none. Post Op Diagnosis: - Rosi-Gray tear. - Normal stomach. - Normal examined duodenum. - No specimens collected. Recommendation: - Return patient to [facility] for ongoing care. - Continue present medications. - Clear liquid diet today. - The findings and recommendations were discussed with the patient and their spouse. Attending Participation: I personally performed the entire procedure. Jefry Murphy MD Jefry Murphy MD 09/02/2018 5:03:38 PM This report has been signed electronicallyJomanohar Murphy MD Number of Addenda: 0 Note Initiated On: 09/02/2018 4:07 PM [email or web address]
[2018-09-02] MEDS ORDERED: PHENYLEPHRINE HCL 100 MCG/ML SYR ONE (17:07)
--- NOTE | 2018-09-02 17:19 | GCON ---
[f rep st] CONSULTATION GASTROENTEROLOGY CONSULTATION DATE OF CONSULTATION: 09/02/2018 REFERRING PHYSICIAN: Tommy Hurley MD REASON FOR CONSULTATION: Hematemesis. HISTORY OF PRESENT ILLNESS: The patient is an 83-year-old gentleman with chronic anticoagulation therapy with Eliquis secondary to chronic atrial fibrillation who also recently had a kidney stone which passed 1 month ago, who had an episode of nausea and violent retching followed by bloody emesis x2, starting late last night. He has denied any melena. He has had no bowel movement since this episode. He has denied any NSAID use. He drinks only occasional alcohol. There is no history of liver disease. He has had no prior peptic ulcer disease. He does have a remote history of a Schatzki's ring, which was treated endoscopically greater than 10 years ago. He has seen Dr. Arturo Guillaume in the past at [facility], though he does not recall what for. MEDICATIONS: Prior to admission, Eliquis 5 mg p.o. twice daily, atorvastatin 20 mg p.o. daily, vitamin D3 1000 units p.o. daily, furosemide 20 mg p.o. daily , Protonix 20 mg p.o. twice daily, Aspercreme three times daily p.r.n., Flomax 0.4 mg p.o. daily. ALLERGIES: Propranolol, oral aspirin, penicillin, sulfa, lansoprazole. PAST MEDICAL HISTORY: Significant for atrial fibrillation on chronic Eliquis therapy, hyperlipidemia, kidney stones, Schatzki's ring, and chronic renal insufficiency-mild. FAMILY HISTORY: Negative for GI malignancies. SOCIAL HISTORY: He is a nonsmoker. He rarely drinks alcohol. He and his are retired and live in the [place] area. REVIEW OF SYSTEMS: N/V per HPI otherwise negative for comprehensive review of systems. PHYSICAL EXAMINATION: VITAL SIGNS: On my examination today, patient's temperature was 37.1 Celsius, pulse 71 regular, blood pressure 119/75, respiratory rate 18, O2 saturation 100% on room air. GENERAL: A well-developed , well-nourished male, sitting in chair, in no apparent distress. INTEGUMENT: Clear. HEENT: Head atraumatic, normocephalic. Pupils equal, round, reactive to light. EOMs were intact. Sclerae nonicteric. Mucous membranes were moist. Dentition good. NECK: Supple. Trachea midline. LYMPHATICS: No cervical or axillary adenopathy pulmonary. LUNGS: Clear to percussion and auscultation. CARDIOVASCULAR: Rate is irregularly irregular. Normal S1, S2. No murmur. Peripheral pulses strong bilaterally. No pedal edema. GASTROINTESTINAL: Abdomen supple. Positive bowel sounds. No liver edge or spleen tip palpable. No masses or tenderness noted. No fluid wave noted. EXTREMITIES: Without deformity. NEURO: Patient was alert, oriented x3. No focal neurologic deficits. LABORATORY DATA: Admission hemoglobin 15.4 with hematocrit of 46.9; with hydration, hemoglobin 13.8, hematocrit 41.5, white count 8.14, platelets 155, 000. Pro time 15.7, INR 1.31, PTT 33.1. Electrolytes normal. BUN 29, creatinine 1.3, glucose 119. Stool Hemoccult negative. IMPRESSION: 1. An 83-year-old gentleman with underlying atrial fibrillation, on chronic anticoagulant therapy, now with nausea, vomiting, hematemesis, rule out peptic ulcer, rule out Rosi-Gray tear. 2. Mild chronic renal insufficiency. 3. Hyperlipidemia. RECOMMENDATIONS: Will go to urgent esophagogastroduodenoscopy today with endotracheal intubation and general anesthesia due to active bleeding. The patient is at increased risk for complication due to the above medical conditions and active bleed. /[id number]/MODL MTDD
[2018-09-02] MEDS ORDERED: oxyCODONE IR 5 MG TAB PO PRN (17:24)
[2018-09-02] MEDS ORDERED: HYDROmorphONE/DILAUDID 2 MG/ML INJ IVP PRN (17:24)
[2018-09-02] MEDS ORDERED: ACETAMINOPHEN 500 MG TAB PO PRN (17:24)
[2018-09-02] MEDS ORDERED: ALBUTEROL 3 ML DEYVIAL IH PRN (17:24)
[2018-09-02] MEDS ORDERED: NALOXONE HCL 0.4 MG/ML INJ IVP PRN (17:24)
[2018-09-02] MEDS ORDERED: LABETALOL HCL 5 MG/ML 20 ML MDV IVP PRN (17:24)
[2018-09-02] MEDS ORDERED: DEXAMETHASONE 4 MG/ML VIAL IVP PRN (17:24)
[2018-09-02] MEDS ORDERED: MEPERIDINE 25 MG/0.5 ML AMP IVP PRN (17:24)
[2018-09-02] MEDS ORDERED: PROMETHAZINE HCL 25 MG/ML INJ IVP PRN (17:24)
[2018-09-02] MEDS ORDERED: PHENYLEPHRINE HCL 100 MCG/ML SYR IVP PRN (17:24)
[2018-09-02] MEDS ORDERED: METOCLOPRAMIDE 10 MG/2 ML VIAL IVP PRN (17:24)
[2018-09-02] MEDS ORDERED: LR 500 ML IV PRN (17:24)
[2018-09-02] MEDS ORDERED: fentaNYL 100 MCG/2 ML INJ IVP PRN (17:24)
--- NOTE | 2018-09-02 17:26 | POSTANESTH ---
Post Anesthetic Evaluation Cardiovascular Status: Normal, Stable Respiratory Status: Normal, Stable Level of Consciousness/Mental Status: Can Participate in Eval Pain Control: Adequate, Prn Tx Ordered Nausea/Vomiting Control: Adequate, Prn Tx Ordered Complications Possibly Related to Anesthesia: None Noted
[2018-09-02] MEDS: PANTOPRAZOLE SODIUM 40 MG TAB PO SCH (19:51)
[2018-09-03 05:32] LABS: PLATELET COUNT 116 10^3/uL (150-400)
--- NOTE | 2018-09-03 10:17 | HOSPPROG ---
Hospitalist Progress Note Assessment/Plan: Patient is an 83-year-old man with hematemesis on anticoagulation.First encounter, chart reviewed. *hematemesis -s/p EGD- noted ot have a Rosi Gray tear -Protonix (allergic to Lansoprazole) *afib, w rapid ventricular response -will get a 12 lead to verify -not on beta man -Eliquis on hold -will fluid bolus new and see if he improves *hypotension -fluid bolus now *Norovirus -multiple bouts of diarrhea -cont IV hydration *hypokalemia -protocol *HLD *recent kidney stone -was recently hospitalized for this Plan: with afib, rvr,and hypotension + frequent diarrhea patient will require another midnight stay for treatment. He likely can't take in enough oral intake w diarrhea ongoing. J Subjective: Phoenix is not c/o pain. Objective: Vital Signs Temp Pulse Resp BP Pulse Ox 36.6 C 132 H 20 122/72 H 95 09/03/18 07:30 09/03/18 07:30 09/03/18 07:30 09/03/18 07:30 09/03/18 07:30 Microbiology 09/02/18 21:30 Gastrointestinal Tract Panel (PCR) - Final Stool Norovirus Gi/Gii Laboratory Results 09/03/18 04:55 09/03/18 04:55 09/02/18 09/03/18 09/04/18 05:59 05:59 05:59 Intake Total 100 Output Total 950 Balance -850 PT 15.7 SEC (12.0-15.0) H 09/02/18 11:18 INR 1.31 (0.83-1.16) H 09/02/18 11:18 - Physical Exam Constitutional: no apparent distress, appears nourished Eyes: PERRL Ears, Nose, Mouth, Throat: hearing normal Cardiovascular: irregularly irregular, tachycardia Respiratory: no respiratory distress, reduced air movement Gastrointestinal: normoactive bowel sounds Skin: warm Musculoskeletal: full muscle strength Neurologic: AAOx3 Psychiatric: interacting appropriately ICD10 Worksheet Patient Problems: Problems Problem Status Onset Upper gastrointestinal bleed Acute Hydronephrosis due to obstruction of ureter Acute Renal colic on left side Acute Uncontrolled pain Acute Ureterolithiasis Acute
[2018-09-03] MEDS: PANTOPRAZOLE SODIUM 40 MG TAB PO SCH ×2 (10:19→22:10)
[2018-09-03] MEDS: ATORVASTATIN CALCIUM 20 MG TAB PO SCH (10:19)
[2018-09-03] MEDS ORDERED: PROTOCOL POTASSIUM 1 DOSE MISC PRN (10:36)
[2018-09-03] MEDS ORDERED: NS 250 ML IV ONE (10:36)
[2018-09-03] MEDS: NS 1,000 ML IV SCH (11:46)
--- NOTE | 2018-09-03 13:59 | ASMTCMCOM ---
CM Note CM Note Notes: Reviewed chart, pt admitted for upper GIB. He is on Elliquis and has been having vomiting/diarrhea. Scope revealed Rosi-Gray tear. Pt is otherwise independent and lives at home with his . Anticipate he will dc home when medically stable. CM available for any changes. DC Plan: Independent Date Signed: 09/03/2018 01:58 PM Electronically Signed By:Corinne Sousa RN
--- NOTE | 2018-09-03 18:19 | PDMN ---
Medical Necessity Medical necessity: Change to IP, as of 09/03/18, per [employer]; los >2 mn for ongoing management of norovirus w/diarrhea, inability to maintain oral hydration & Rosi Gray tear w/hematemesis s/p EGD; requiring monitoring & IVFs; comorbid advanced age, AFIB on AC, CKD
[2018-09-03] MEDS ORDERED: POTASSIUM CL 10 MEQ TAB PO ONE ×2 (19:54→22:03)
[2018-09-04] MEDS ORDERED: POTASSIUM CL 10 MEQ TAB PO ONE (07:29)
[2018-09-04] MEDS: ATORVASTATIN CALCIUM 20 MG TAB PO SCH (07:48)
[2018-09-04] MEDS: PANTOPRAZOLE SODIUM 40 MG TAB PO SCH (07:49)
--- NOTE | 2018-09-04 11:19 | CPEKG ---
Test Reason : OPEN Blood Pressure : / mmHG Vent. Rate : 091 BPM Atrial Rate : 141 BPM P-R Int : 192 ms QRS Dur : 082 ms QT Int : 357 ms P-R-T Axes : 000 051 000 degrees QTc Int : 440 ms Atrial fibrillation Similar to prior Confirmed by Davey Velarde ([id number]) on 09/04/2018 11:19:26 AM Referred By: Tommy Hurley Confirmed By:Davey Velarde
[2018-09-04 12:03] VITALS: BP 123/86
--- NOTE | 2018-09-04 13:53 | HOSPPROG ---
Hospitalist Progress Note Assessment/Plan: Patient is an 83-year-old man with hematemesis on anticoagulation.First encounter, chart reviewed. *hematemesis -s/p EGD- noted ot have a Rosi Gray tear -Protonix (allergic to Lansoprazole) -reviewed w Dr Murphy - ok to resume Eliquis in a week *afib, w rapid ventricular response -occurred yesterday, improved w hydration -not on beta man, has fainted w propanolol -spoke w his PCP, Dr Sauer about his care -Eliquis on hold *hypotension -resolved *Norovirus -multiple bouts of diarrhea -cont IV hydration *hypokalemia -protocol *HLD *recent kidney stone -was recently hospitalized for this Plan: reviewed w Dr Goncalves his care, recommendation is Digoxin and to f/u with cards next week J Subjective: Phoenix feels fine, has very few stools. Objective: Vital Signs Temp Pulse Resp BP Pulse Ox 36.7 C 100 18 123/86 H 95 09/04/18 12:00 09/04/18 12:00 09/04/18 12:00 09/04/18 12:00 09/04/18 12:00 Laboratory Results 09/04/18 05:32 09/04/18 05:32 09/03/18 09/04/18 09/05/18 05:59 05:59 05:59 Intake Total 1336 Output Total 1400 400 Balance -64 -400 PT 15.7 SEC (12.0-15.0) H 09/02/18 11:18 INR 1.31 (0.83-1.16) H 09/02/18 11:18 - Physical Exam Constitutional: no apparent distress, not in pain Eyes: PERRL Ears, Nose, Mouth, Throat: hearing normal Cardiovascular: irregularly irregular, tachycardia Respiratory: no respiratory distress Skin: warm Musculoskeletal: full muscle strength Neurologic: AAOx3 Psychiatric: interacting appropriately ICD10 Worksheet Patient Problems: Problems Problem Status Onset Upper gastrointestinal bleed Acute Hydronephrosis due to obstruction of ureter Acute Renal colic on left side Acute Uncontrolled pain Acute Ureterolithiasis Acute
[2018-09-04] MEDS ORDERED: DIGOXIN 125 MCG TAB PO ONE (16:38)
--- NOTE | 2018-09-04 16:54 | PDCARCONS ---
Cardiology Consult Reason for Consult: Elevated heart rate Chief Complaint: None Requesting Physician: Cristiane History of Present Illness: 83-year-old male long history of chronic atrial fibrillation who has been rate controlled organincally. Longstanding anticoagulation with Eliquis. He was admitted to the hospital with hematemesis. This was associated with a drop in hematocrit requiring hydration. His rate has crept up into the 130s at times. Though the range has been between 75 and the 130s. I am asked to comment on rate control. He is asymptomatic without palpitations. He has had no syncope or near syncope. He has had no chest pain shortness of breath PND orthopnea. He has had previous cardiac workup done at the [facility]. This is included a cardiac catheterization which I reviewed revealing normal coronary arteries in 2008. He has no history of valvular heart disease that he knows of. He has a remote history of a syncopal event. This occurred when he was on atenolol and this was discontinued. He is accompanied today by his and daughter. He is extraordinarily active without limitations. He does keep adequate records and notes his heart rate usually is between the low 60s and 110s with normal activity. History Information - Allergies/Home Medication List Allergies/Adverse Reactions: propranolol HCl [From Inderal LA] Allergy (Severe, Verified 08/02/18 08:34) FAINTED aspirin Allergy (Intermediate, Verified 08/02/18 08:34) HX RECTAL BLDG WITH FULL STRENGTH ASA Penicillins Allergy (Intermediate, Verified 08/02/18 08:34) Hives Sulfa (Sulfonamide Antibiotics) Allergy (Intermediate, Verified 08/02/18 08:34) Rash fluticasone propionate [From Flonase] Allergy (Verified 08/02/18 08:34) lansoprazole [From Prevacid] Allergy (Verified 08/02/18 08:34) ENVIRONMENTAL Allergy (Mild, Uncoded 02/01/14 14:35) NASAL DRAINAGE, SNEEZE FRAGRANCES Allergy (Mild, Uncoded 02/01/14 14:35) RG, NASAL DRAINAGE Home Medications: Acetaminophen [Tylenol ES 500 mg (*)] 500 mg PO Q6 PRN 08/02/18 [Last Taken ] Apixaban [Eliquis] 5 mg PO BID 08/02/18 [Last Taken 09/02/18] Atorvastatin Calcium [Lipitor 20 mg (*)] 20 mg PO DAILY 08/02/18 [Last Taken ] Cholecalciferol Vit D3 [Vitamin D3 (*)] 1,000 units PO DAILY 08/02/18 [Last Taken 09/02/18] Furosemide [Lasix 20 MG (*)] 20 mg PO DAILY 08/02/18 [Last Taken 09/01/18] Methylcellulose [Citrucel] 1,000 mg PO DAILY 08/02/18 [Last Taken 09/02/18] Pantoprazole Sodium 20 mg PO BID 08/02/18 [Last Taken 09/02/18] Trolamine Salicylate [Aspercreme] 1 deborah TP TID PRN 08/02/18 [Last Taken Unknown] I have personally reviewed and updated: family history, medical history, social history, surgical history Past Medical History: - Past Medical History atrial fibrillation - Social History Smoking Status: Never smoked Physical Exam Physical Exam: Temp Pulse Resp BP Pulse Ox 36.7 C 120 H 18 123/86 H 95 09/04/18 12:00 09/04/18 16:47 09/04/18 12:00 09/04/18 12:00 09/04/18 12:00 Constitutional: no apparent distress Ears, Nose, Mouth, Throat: hearing normal Cardiovascular: irregularly irregular Respiratory: no respiratory distress Gastrointestinal: soft, non-tender abdomen Neurologic: AAOx3 Psychiatric: interacting appropriately Lymph, Heme, Immunologic: no cervical LAD, no supraclavicular LAD Lab and Imaging 09/04/18 05:32 09/04/18 05:32 WBC 11.25 10^3/uL (3.80-9.50) H 09/03/18 04:55 RBC 4.05 10^6/uL (4.40-6.38) L 09/03/18 04:55 Hgb 11.8 g/dL (13.7-17.5) L 09/04/18 05:32 Hct 35.1 % (40.0-51.0) L 09/04/18 05:32 MCV 95.1 fL (81.5-99.8) 09/03/18 04:55 MCH 31.4 pg (27.9-34.1) 09/03/18 04:55 MCHC 33.0 g/dL (32.4-36.7) 09/03/18 04:55 RDW 14.1 % (11.5-15.2) 09/03/18 04:55 Plt Count 116 10^3/uL (150-400) L 09/03/18 04:55 MPV 10.0 fL (8.7-11.7) 09/03/18 04:55 Neut % (Auto) 79.4 % (39.3-74.2) H 09/03/18 04:55 Lymph % (Auto) 7.7 % (15.0-45.0) L 09/03/18 04:55 Mitchell % (Auto) 12.3 % (4.5-13.0) 09/03/18 04:55 Eos % (Auto) 0.1 % (0.6-7.6) L 09/03/18 04:55 Baso % (Auto) 0.1 % (0.3-1.7) L 09/03/18 04:55 Nucleat RBC Rel Count 0.0 % (0.0-0.2) 09/03/18 04:55 Absolute Neuts (auto) 8.93 10^3/uL (1.70-6.50) H 09/03/18 04:55 Absolute Lymphs (auto) 0.87 10^3/uL (1.00-3.00) L 09/03/18 04:55 Absolute Monos (auto) 1.38 10^3/uL (0.30-0.80) H 09/03/18 04:55 Absolute Eos (auto) 0.01 10^3/uL (0.03-0.40) L 09/03/18 04:55 Absolute Basos (auto) 0.01 10^3/uL (0.02-0.10) L 09/03/18 04:55 Absolute Nucleated RBC 0.00 10^3/uL (0-0.01) 09/03/18 04:55 Immature Gran % 0.4 % (0.0-1.1) 09/03/18 04:55 Immature Gran # 0.05 10^3/uL (0.00-0.10) 09/03/18 04:55 RBC/WBC/PLT Morphology TNP 09/02/18 11:18 Platelet Estimate TNP 09/02/18 11:18 PT 15.7 SEC (12.0-15.0) H 09/02/18 11:18 INR 1.31 (0.83-1.16) H 09/02/18 11:18 APTT 33.1 SEC (23.0-38.0) 09/02/18 11:18 Sodium 138 mEq/L (135-145) 09/04/18 05:32 Potassium 3.5 mEq/L (3.5-5.2) 09/04/18 05:32 Chloride 110 mEq/L (97-110) 09/04/18 05:32 Carbon Dioxide 21 mEq/l (22-31) L 09/04/18 05:32 Anion Gap 7 mEq/L (6-14) 09/04/18 05:32 BUN 15 mg/dL (7-23) 09/04/18 05:32 Creatinine 0.9 mg/dL (0.7-1.3) 09/04/18 05:32 Estimated GFR > 60 09/04/18 05:32 Glucose 90 mg/dL (70-100) 09/04/18 05:32 Calcium 7.9 mg/dL (8.5-10.4) L 09/04/18 05:32 Stool Occult Bld Scrn NEGATIVE (NEGATIVE) 09/02/18 11:18 EKG additional interpertation: Atrial fibrillation A/P Assessment: Discussion: 83-year-old with chronic atrial fibrillation. He is currently off anticoagulation in the setting of recent GI bleeding. His rate is modestly controlled. He is asymptomatic. He has not tolerated beta-man in the past. Would recommend low-dose digoxin 0.125 mg daily. He has a normal creatinine in the should be tolerated well. Will follow him up in 1 week. As his hemoglobin improves my guess is his heart rate will come down. He has normal blood pressure. No contraindications to continuing anticoagulation once cleared by GI. Will follow him up in a week with a Holter monitor to determine adequacy of rate control at that time. Will need to review his most recent echocardiogram from the [facility]. He had a normal angiogram in 2008 without significant change in overall risk. From my point of view he would be safe to be discharged home from a cardiac point of view. I have discussed this with the patient's family. Will follow him up in 1 week. Thank for allowing me persistent his care. Review of Systems Review of Systems: - Review of Systems Constitutional: denies: chills, fever EENTM: no symptoms reported Respiratory: no symptoms reported Cardiac: no symptoms reported Gastrointestinal/Abdominal: no symptoms reported Genitourinary: no symptoms Musculoskelatal: no symptoms Skin: no symptoms Neurological: no symptoms Hematologic/Lymphatic: no symptoms reported Past Medical History PMH: - Personal History Current Tetanus/Diphtheria Vaccine: Unsure Current Tetanus Diphtheria and Acellular Pertussis (TDAP): Unsure - Medical/Surgical History Hx Asthma: No Hx Chronic Respiratory Disease: No Hx Cardiac Disease: Yes Hx Diabetes: No Hx Renal Disease: No Hx Alcoholism: No Hx Cirrhosis: No Hx HIV/AIDS: No Hx Splenectomy or Spleen Trauma: No Other PMH: kidney stones, afib, hypercholesterolemia, chronic kidney disease, hernia, appendectomy - Social History Smoking Status: Never smoked Additional Social History:
--- NOTE | 2018-09-04 18:50 | GDS ---
[f rep st] DISCHARGE SUMMARY DISCHARGE DIAGNOSES: 1. Hematemesis, secondary to a Rosi-Gray tear. 2. Atrial fibrillation with rapid ventricular response. 3. Hypertension. 4. Norovirus. 5. Hypokalemia. 6. Hyperlipidemia. 7. Recent kidney stone. CONSULTATION: Dr. Charles Goncalves. HISTORY OF PRESENT ILLNESS: Briefly, the patient is an 83-year-old gentleman who had an episode of h ematemesis and is noted to be on Eliquis. He was seen and evaluated by Dr. Jefry Murphy and he had an upper GI endoscopy, which showed an 8 mm nonbleeding Rosi-Gray tear without stigmata of recen t bleeding was found. The patient's hemoglobin and hematocrit were monitored closely during his stay and he has done well. Of note, he has been in chronic atrial fibrillation. He had some rapid ventricular response that impr doretha with IV fluids. He has norovirus and was hypotensive and dehydrated. Today prior to discharge, ancelmo ya was tachycardic, but not really having any significant diarrhea. I reviewed his care with Cardiolog y. He will be discharged home on digoxin and follow up with them next week. HOSPITAL COURSE BY PROBLEM: 1. Hematemesis, status post EGD, noted to have a Rosi-Gray tear. He was put on Protonix. He is a llergic to Lansoprazole. Resumed his home medication. It is okay for and resume Eliquis in a week. I reviewed this with Gastroenterology. 2. Atrial fibrillation with rapid ventricular response. Started on digoxin. 3. Hypotension, resolved. 4. Norovirus, much improved. 5. Hypokalemia due to the norovirus. 6. Hyperlipidemia, on statin therapy. 7. Recent acute kidney stone was recently hospitalized. DISCHARGE CONDITION: Stable, blood pressure is 123/86, heart rate of 100, respiratory rate of 18, O2 sats on room air 95%, temperature is 36.7 Celsius. MEDICATIONS AT DISCHARGE: Please see the EMR. DISCHARGE INSTRUCTIONS: 1. To follow up with Dr. Charles Goncalves next week. 2. If he develops fever, chills, worsening diarrhea, to return to the ER. 3. To start his Eliquis on September 09. Greater than 30 minutes discharging and coordinating the patient's care. /[id number]/MODL
== END 2018-09-04 18:00 | disposition home or self-care (01) | DRG 369 ==
LOC: F3E 14:14 → OBSVTOIN 09-03 10:37
PROVIDERS: ADMIT Student in an Organized Health Care Education/Training Program; ATTEND Student in an Organized Health Care Education/Training Program
PROC: 0DJ08ZZ Inspection of Upper Intestinal Tract, Via Natural or Artificial Opening Endoscopic (ICD-10-PCS; principal; 2018-09-02 16:30)
DX: K22.6 Gastro-esophageal laceration-hemorrhage syndrome (principal); A08.11 Acute gastroenteropathy due to Norwalk agent; E87.6 Hypokalemia; I48.2 Chronic atrial fibrillation; E78.00 Pure hypercholesterolemia, unspecified; I12.9 Hypertensive chronic kidney disease with stage 1 through stage 4 chronic kidney disease, or unspecified chronic kidney disease; N18.9 Chronic kidney disease, unspecified; K22.2 Esophageal obstruction; Z79.01 Long term (current) use of anticoagulants; Z87.442 Personal history of urinary calculi
CPT/HCPCS: G0378; J2370; J2704